=== PATIENT | female | born 1960 | race Caucasian/White ===

== ENCOUNTER 2016-09-22 07:35 | Observation (INO) | payer MEDICARE, OTHER ==
[2016-09-11 12:35] LABS: BASOPHILS 0.4 %; BASOPHILS ABSOLUTE 0.02 10/3/uL (0.0-0.16); EOSINOPHILS 2.2 %; EOSINOPHILS ABSOLUTE 0.12 10/3/uL (0.0-0.53); HEMOGLOBIN 14.1 g/dL (12.0-16.0); IMMATURE GRANULOCYTES 0.2 %; IMMATURE GRANULOCYTES ABSOLUTE 0.01 10/3/uL (0.0-0.11); LYMPHOCYTES 31.8 %; MANUAL DIFF NO %; MEAN CORPUS HGB CONC 33.6 g/dL (32.0-36.0); MEAN CORPUSCULAR VOLUME 86.4 fL (80-100); MEAN PLATELET VOLUME 10.5 fL (9.2-13.0); MONOCYTES 5.8 %; MONOCYTES ABSOLUTE 0.31 10/3/uL (0.21-1.20); NEUTROPHILS 59.6 %; NEUTROPHILS ABSOLUTE 3.18 10/3/uL (2.02-8.40); PLATELET COUNT 282 10/3/uL (150-400); RBC DISTRIBUTION WIDTH 12.7 % (12.0-16.0); RED CELL COUNT 4.86 10/6/uL (4.0-5.6); WHITE BLOOD CELLS 5.3 10/3/uL (4.5-10.5)
[2016-09-11 12:52] LABS: A/G RATIO 1.3 (0.7-1.9); ALBUMIN 4.1 G/DL (3.5-5.0); ALKALINE PHOSPHATASE 79 U/L (45-117); BUN (BLOOD UREA NITROGEN) 9 MG/DL (6-23); CALCIUM, SERUM 9.4 MG/DL (8.5-10.4); CHLORIDE, SERUM 110 MMOL/L (96-112); CREATININE 0.68 MG/DL (0.55-1.02); GFR AFRICAN AMERICAN 113 ML/MIN (>=60); GFR NON AFRICAN AMERICAN 97 ML/MIN (>=60); GLOBULIN 3.2 G/DL (2.5-4.1); SGOT(AST) 10 U/L (5-40); SGPT(ALT) 20 U/L (5-65); SODIUM, SERUM 143 MMOL/L (135-148); TOTAL BILIRUBIN 0.6 MG/DL (0-1.2); TOTAL PROTEIN 7.3 G/DL (6.0-8.5)
[2016-09-11 12:55] LABS: CO2 (CARBON DIOXIDE) 28 MMOL/L (24-34); GLUCOSE, SERUM 144 MG/DL (60-99); POTASSIUM, SERUM 3.8 MMOL/L (3.5-5.3)
--- NOTE | ~2016-09-22 | OP ---
Record Of Operation [facility] [address] [place]. [address] NAME: FLORY BARDALES : 58 STATUS : DIS IN PAT#: [id number] AGE: 56 ADM/REG DATE : 09/22/16 MR#: [id number] REPORT SERV DATE: 09/25/16 DICTATED BY: TIAGO GONZALES DATE: 09/22/16 REPORT STATUS : Draft TRANSCRIBED BY: MODL DATE: 09/22/16 DATE OF PROCEDURE: 09/22/2009 PREOPERATIVE DIAGNOSES: 1. Severe gastroesophageal reflux disease. 2. Hiatal hernia. POSTOPERATIVE DIAGNOSIS: Severe gastroesophageal reflux disease. PROCEDURE: Laparoscopic Mitzy fundoplication. SURGEON: Tiago Gonzales M.D. CHIEF RESIDENT: Valente Mar MD ANESTHETIC: General with local. IV FLUIDS: Approximately 1 L. BLOOD LOSS: 25 mL. COMPLICATIONS: None. COUNTS: Correct. SPECIMEN: None. DESCRIPTION OF PROCEDURE: The patient was brought to the operating room and placed supine on the operating table. Anesthetic was administered. Endotracheal intubation achieved. The patient was placed in the modified lithotomy position. The abdomen was prepped and draped in a standard sterile fashion. A time-out was held. Incision was made just superior and lateral to the umbilicus on the patient's left. Ulnar incision was made and the Optiview technique was employed to gain access to the intraabdominal space and established pneumoperitoneum. After this was achieved, laparoscope was inserted and intraabdominal contents inspected. Four working trocars were inserted. One 5 mm trocar in the left upper quadrant. A 5 mm trocar on the left anterior axillary line, and two 5 mm trocars in the right upper quadrant under laparoscopic visualization. The liver retractor was inserted through the most lateral right trocar and the liver retracted upward. The hiatus was inspected, and there was no obvious hiatal hernia. Gastrohepatic ligament was opened with the Harmonic and right chago identified. Next, the peritoneum overlying the junction of the right chago and the paraesophageal fat was divided and a plane created. This was carried around anteriorly to the esophagus with care taken to avoid injury to the esophagus and vagal nerves. The stomach was retracted inferiorly and to the right to divide the short gastrics. Once the peritoneum was opened, this was carried up superiorly but was made difficult by the close adhesions of the stomach to the superior aspect of the spleen. After the stomach had been mobilized from the spleen and the primary short gastrics had been Record Of Operation [facility] [address] [place]. [address] NAME: FLORY BARDALES : 58 STATUS : DIS IN PAT#: [id number] AGE: 56 ADM/REG DATE : 09/22/16 MR#: [id number] REPORT SERV DATE: 09/25/16 DICTATED BY: TIAGO GONZALES DATE: 09/22/16 REPORT STATUS : Draft TRANSCRIBED BY: MODL DATE: 09/22/16 divided, the right chago was delineated and the dissection of the mediastinum continued from this side. Next, we created a window behind the esophagus with blunt dissection and Vero was used to encircle the esophagus. The hiatus was reapproximated with suture assist device and 3-0 Ethibond, and we then turned our attention to the fundoplication. The stomach was grasped posterior to the esophagus, and pulled to the right. It was oriented to approximate how the Mitzy fundoplication would be laid and the shoeshine technique employed to ensure that there was no twisting of the fundus. Using the suture assist device, fundoplication was conducted with 3 simple interrupted sutures to the most superior including a purchase on the right lateral esophagus. After this was conducted, the OG tube that had been placed at the beginning of the case, was removed and the hiatus again inspected. Vero was removed and hemostasis ensured. The trocars are withdrawn and pneumoperitoneum released. The incisions were closed superficially with 4-0 Monocryl in a subcuticular fashion. Then sterile bandage was applied. The patient tolerated the procedure well and was extubated and transferred to recovery room in stable condition. DICTATED BY: Valente Mar MD ND/MELANIE Tiago Gonzales M.D. / [id number] CC: Andrea Ozuna
[~2016-09-22 07:35] MED LIST: AT25 PO; TOPXL50 PO; VITA D3 PO; ZANAFLEX 4 MG TA4 MG PO
[2016-09-23 06:34] LABS: BASOPHILS 0 %; EOSINOPHILS 0 %; HEMATOCRIT 36.1 % (36.0-48.0); HEMOGLOBIN 12.1 g/dL (12.0-16.0); IMMATURE GRANULOCYTES 0.3 %; IMMATURE GRANULOCYTES ABSOLUTE 0.04 10/3/uL (0.0-0.11); LYMPHOCYTES 6.9 %; LYMPHOCYTES ABSOLUTE 0.91 10/3/uL (0.67-4.30); MANUAL DIFF NO %; MEAN CORPUS HGB CONC 33.5 g/dL (32.0-36.0); MEAN CORPUSCULAR HEMOGLOB 28.7 pg (26.0-34.0); MEAN CORPUSCULAR VOLUME 85.7 fL (80-100); MEAN PLATELET VOLUME 10.5 fL (9.2-13.0); MONOCYTES 6.4 %; MONOCYTES ABSOLUTE 0.84 10/3/uL (0.21-1.20); NEUTROPHILS 86.4 %; NEUTROPHILS ABSOLUTE 11.43 10/3/uL (2.02-8.40); PLATELET COUNT 256 10/3/uL (150-400); RED CELL COUNT 4.21 10/6/uL (4.0-5.6); WHITE BLOOD CELLS 13.2 10/3/uL (4.5-10.5)
[2016-09-23 06:42] LABS: BUN (BLOOD UREA NITROGEN) 12 MG/DL (6-23); CALCIUM, SERUM 8.7 MG/DL (8.5-10.4); CHLORIDE, SERUM 108 MMOL/L (96-112); CO2 (CARBON DIOXIDE) 25 MMOL/L (24-34); CREATININE 0.67 MG/DL (0.55-1.02); GFR AFRICAN AMERICAN 113 ML/MIN (>=60); GFR NON AFRICAN AMERICAN 98 ML/MIN (>=60); GLUCOSE, SERUM 95 MG/DL (60-99); POTASSIUM, SERUM 3.6 MMOL/L (3.5-5.3); SODIUM, SERUM 141 MMOL/L (135-148)
[2016-09-23] MEDS ORDERED: PCET PO (10:56)
[2016-09-23] MEDS ORDERED: ZOFRAN4 PO (10:56)
[2016-10-26] MEDS ORDERED: LEVSINTAB PO (13:30)
[2016-10-26] MEDS ORDERED: MEDS (13:54)
== END 2016-09-23 11:27 | disposition home or self-care (01) ==
LOC: SDC 07:35 → 5SO 13:42
PROVIDERS: Specialist
PROC: 0DV44ZZ Restriction of Esophagogastric Junction, Percutaneous Endoscopic Approach (ICD-10-PCS; principal; 2016-09-22 09:45)
DX: K21.9 Gastro-esophageal reflux disease without esophagitis (principal); K44.9 Diaphragmatic hernia without obstruction or gangrene; K22.70 Barrett's esophagus without dysplasia
CPT/HCPCS: 80048; 80053; 85025; 93005; 96374; 96375; 96376; A9270-GY; G0378; J0690; J1885; J2250; J2405; J2550; J2597; J2710; J3010